=== PATIENT | female | born 1955 | race Caucasian/White ===

== ENCOUNTER 2022-01-21 09:03 | Outpatient (CLI) | payer MEDICARE, OTHER | END 2022-01-21 09:04 | disposition home or self-care (01) | LOC: CSHMAMMO 09:03 | PROVIDERS: ATTEND Family Medicine | DX: Z12.31 Encounter for screening mammogram for malignant neoplasm of breast (principal) | CPT/HCPCS: 77063; 77067 ==

== ENCOUNTER 2023-02-16 11:16 | Day surgery (SDC) | payer MEDICARE, OTHER ==
[2023-02-15 10:16] VITALS: BMI 32.9
[~2023-02-16 11:16] MED LIST: Lidocaine 2% MPF 10 ML AMP (For Epidural Use) ONE; PROPOFOL 40 ML ONE
[2023-02-16] MEDS ORDERED: Midazolam HCl 2 mg/2 ml Vial ONE (11:53)
== END 2023-02-16 13:20 | disposition home or self-care (01) ==
LOC: CSHSDC 11:16
PROVIDERS: ATTEND Internal Medicine Gastroenterology
PROC: 0DJ08ZZ Inspection of Upper Intestinal Tract, Via Natural or Artificial Opening Endoscopic (ICD-10-PCS; principal; 2023-02-16)
PROC: 0DDN8ZX Extraction of Sigmoid Colon, Via Natural or Artificial Opening Endoscopic, Diagnostic (ICD-10-PCS; 2023-02-16)
DX: K21.9 Gastro-esophageal reflux disease without esophagitis (principal); K63.5 Polyp of colon; J30.9 Allergic rhinitis, unspecified; E78.5 Hyperlipidemia, unspecified; G47.00 Insomnia, unspecified; K22.89 Other specified disease of esophagus; K22.70 Barrett's esophagus without dysplasia; K31.7 Polyp of stomach and duodenum; K25.9 Gastric ulcer, unspecified as acute or chronic, without hemorrhage or perforation; K57.30 Diverticulosis of large intestine without perforation or abscess without bleeding; K64.9 Unspecified hemorrhoids; Z88.1 Allergy status to other antibiotic agents; G47.33 Obstructive sleep apnea (adult) (pediatric); Z79.899 Other long term (current) drug therapy; K31.9 Disease of stomach and duodenum, unspecified
CPT/HCPCS: 88300; 88305; 88312; 88313; J2250; J2704